=== PATIENT | female | born 1975 | race Caucasian/White ===

== ENCOUNTER 2020-02-11 20:41 | Outpatient (CLI) | payer BC | END 2020-02-11 20:42 | disposition home or self-care (01) | LOC: COV 20:41 | PROVIDERS: ATTEND Family Medicine | DX: R05 Cough (principal); R53.83 Other fatigue; R19.7 Diarrhea, unspecified; J34.89 Other specified disorders of nose and nasal sinuses; Z20.828 Contact with and (suspected) exposure to other viral communicable diseases ==